=== PATIENT | female | born 1960 | race Caucasian/White ===

== ENCOUNTER 2017-06-17 08:47 | Emergency (ER) | payer OTHER, SELFPAY ==
[2017-06-17 08:49] VITALS: BP 134/78; PULSE 100; RESP 18; TEMP 36.7; O2SAT 98; BMI 21.4
--- NOTE | 2017-06-17 09:01 | ED.VISSUMM ---
- ER Visit Summary Date of Service: 06/17/17 Chief Complaint: Headache, dizzy History of Present Illness: The patient is a 57 F who states for the past several months she has had some intermittent dizziness and shaking of her hands. Today she bent over and had a headache in the posterior part of her head. Her headache is gone she still continues the other symptoms. She feels like her muscles are jumping. She denies a fever, nausea, vomiting, chest pain, shortness of breath, visual changes. She has had no falls or direct trauma to her head. She feels lightheaded today. She does not describe as room spinning. She has been eating and drinking okay. She has not spoken with her physician about the symptoms. She does have a history of hypothyroid and takes Synthroid as her only medication Physical Examination: Vital signs reviewed. HEENT exam unremarkable. Heart is regular rate and rhythm without murmurs. Lungs are clear to auscultation. Abdomen is soft and nontender. Extremities reveal no edema. Skin exam normal. Neurologic exam shows normal strength and sensation. She has shaking of her hands that is extinguishable with distraction. Test Results: Laboratory studies are normal. TSH normal. CAT scan of the head reveals no acute findings Emergency Department Course and Treatment: Patient was given normal saline IV. I am unclear the etiology of the patient's shakiness. Her neurologic exam is normal. The shakiness is extinguishable with distraction. I do not feel it is a pathologic shakiness. There could be an element of anxiety with this. Although she tells me that she has not anxious. I reassured the patient. She will need to call her PCP for follow-up for further outpatient testing. Treatment Plan: [] Disposition: Discharge Impression: Shakiness This note was generated with [employer] dictation software. It may contain incorrect words, spelling, and punctuation that were not noted in review of the chart prior to signing ED Disposition - Plan for ED Patient: Chief Complaint: Headache Referrals: Carolina Emanuel MD [Primary Care Provider] -
--- NOTE | 2017-06-17 09:02 | CT_ITS ---
STUDY: CT BRAIN WITHOUT CONTRAST REASON FOR EXAM: Female, 57 years old. MOORE, EYES LIGHT SENSITIVE, SHAKING RADIATION DOSAGE (If Supplied By Facility): CTDIvol = ( 44.99 ) mGy, DLP = ( 762.36 ) mGycm TECHNIQUE: Transaxial CT imaging of the brain was performed without administration of intravenous contrast material. Individualized dose optimization techniques were used for this CT. COMPARISON: None. FINDINGS: Normal soft tissue structures. Normal calvarium. Normal size ventricles and extra-axial spaces for the patient's age. Normal white matter tracts of the cerebral hemispheres. There is a lucent lesion in the right basal ganglia are consistent with a dilated perivascular space measures 1.8 cm. Normal basal ganglia and thalami. Normal brainstem. Normal cerebellum. There is no intracranial hemorrhage. There are no findings of an acute ischemic infarction. Normal visualized paranasal sinuses. CT/Brain/Head without Contrast IMPRESSION: Normal unenhanced CT scan of the brain. There is a lucent lesion in the right basal ganglia are consistent with a dilated perivascular space measures 1.8 cm. Electronically Signed: Soha Mcintyre MD at 10:05 EDT Tel , Service support ,
[2017-06-17] MEDS: 0.9% Normal Saline 1,000 ML 999 ML IV (09:22)
[2017-06-17 09:48] LABS: Absolute Lymphocyte Count 1.45 X10^3/ul (0.83-4.51); Basophil# 0.12 X10^3/uL; Basophil% 2.1 % (0-1); Eosinophil# 0.39 X10^3/uL; Hematocrit 38.7 % (37-47); Hemoglobin 13.1 g/dl (12.0-15.0); Lymphocyte # 1.45 X10^3/ul (4.0); Lymphocyte % 25.9 % (19-41); Mean Corp Hgb Conc 33.9 g/gl (32-36); Mean Corpuscular Volume 91.7 fL (81-99); Mean Platelet Vol. 9.2 fl (6.2-12.0); Monocyte# 0.59 X10^3/uL; Monocyte% 10.6 % (0-10); Neutrophil # 3.04 X10^3/uL (2.7-7.7); Neutrophil % 54.4 % (47-70); Platelet Count 313 K/mm3 (150-450); RBC Distribution Width CV 13.2 % (11.6-14.6); RBC Distribution Width SD 43.9 fl (35.1-43.9); Red Blood Count 4.22 M/mm3 (4.2-5.4); White Blood Count 5.6 K/mm3 (4.4-11.0)
[2017-06-17 09:49] LABS: POSITIVE COUNT NO; POSITIVE DIFFERENTIAL NO; POSITIVE MORPHOLOGY NO
[2017-06-17 10:17] LABS: ALB/GLOB Ratio 1.2 RATIO (0.9-2.4); AST(SGOT) 14 U/L (15-37); Alanine Aminotransfer ALT/SGPT 18 U/L (13-56); Albumin, Serum 3.8 g/dL (3.2-5.0); Alkaline Phosphatase 64 U/L (45-117); Anion Gap 7 (5-15); BUN 12 mg/dL (7-18); BUN/Creat Ratio 16.1 RATIO (10-20); Calcium,Total 8.8 mg/dL (8.5-10.1); Chloride 111 mmol/L (98-107); Creatinine, Serum 0.74 mg/dL (0.55-1.02); EST Glomerular Filtration Rate 85 mL/min (>60); Est Glom Filt Rate - Afr Amer 103 mL/min (>60); Estimated Creatinine Clearance 84.99 ml/min; Globulin 3.1 g/dL (2.2-4.2); Glucose 90 mg/dL (74-106); Potassium 3.6 mmol/L (3.5-5.1); Protein, Total 6.9 g/dL (6.4-8.2); Sodium Level 144 mmol/L (136-145); Thyroid Stim Hormone (TSH) 0.38 uIU/mL (0.358-3.74)
--- NOTE | 2017-06-17 10:31 | ED.DEP ---
ED Disposition - Plan for ED Patient: Disposition: Home or Assisted Living Chief Complaint: Headache Instructions: ED Cephalgia Unspecified Referrals: Carolina Emanuel MD [Primary Care Provider] -
== END 2017-06-17 10:50 | disposition home or self-care (01) ==
PROVIDERS: Emergency Provider Emergency Medicine; Family Provider Internal Medicine; PCP Internal Medicine
DX: R42 Dizziness and giddiness (principal); R51 Headache; E03.9 Hypothyroidism, unspecified
CPT/HCPCS: 70450; 80053; 84443; 85025; 99284; J7030; A4216